=== PATIENT | female | born 1965 | race Caucasian/White ===

== ENCOUNTER 2019-01-16 10:29 | Outpatient (CLI) | payer BC ==
[2019-01-16] MEDS ORDERED: Sodium Chloride 0.9% 15 ML NEB ONE (11:11)
--- NOTE | 2019-01-16 17:45 | PRG ---
DATE OF SERVICE: 01/16/2019 HISTORY: Ms. Brett Vargas is a very pleasant 53-year-old last seen in the [facility] on 09/07/2016 for a wound of the right foot subsequent to right great toe ray amputation on 12/09/[address] Marcio Dupree. Subsequently, the patient underwent MRI on 10/03/2016, which revealed changes very suspicious for osteomyelitis of the first metatarsal shaft. On 11/08/2016, the patient underwent amputation of the fourth and fifth toes of the right foot. Today, the patient presents to the [facility] for evaluation of an ulceration of the plantar surface of her right transmetatarsal amputation stump. The patient states that since her last visit to the [facility], she was seen at the [facility] with healing of the wound now present with total contact casting. The patient states that she was last seen at the [facility] approximately 2 months ago. The patient states that after being seen in her primary care physician's office, she was referred to the [facility] for the ulceration of the plantar surface of her right transmetatarsal amputation stump. PHYSICAL EXAMINATION: VITAL SIGNS: Temperature 98.3, pulse 104, blood pressure 166/77. Accu-Chek 132. EXTREMITIES: The wound of the plantar surface of the right transmetatarsal amputation stump over the forefoot measures approximately 4.4 x 3.5 cm. Granulation tissue is visible within the wound margins. No purulent drainage is associated with the wound. Fascia or tendon is visible within the margins of the wound on exam today. ASSESSMENT AND PLAN: 1. Ulceration of plantar surface of right transmetatarsal amputation stump over the forefoot. As stated above, the patient reports that the wound with which she now presents healed completely with total contact casting before recurring. I have explained to the patient that total contact casting will not be available if she chooses to continue treatment at the [facility]. The patient states that she would like to have this modality available to her, so she will follow up at the [facility]. 2. Diabetes mellitus. The patient's Accu-Chek in clinic today is 132. The patient has been told that for optimal wound healing, her blood glucoses should remain below 150. Job ID: [id number]
== END 2019-01-16 10:30 | disposition home or self-care (01) ==
LOC: WCC 10:29
PROVIDERS: ATTEND Family Medicine
DX: T87.89 Other complications of amputation stump (principal); E11.9 Type 2 diabetes mellitus without complications; Z89.411 Acquired absence of right great toe
CPT/HCPCS: 97602; 99203; A4218; G0463

== ENCOUNTER 2022-07-25 13:21 | Outpatient (CLI) | payer BC | END 2022-07-25 13:22 | disposition home or self-care (01) | LOC: BICRAD 13:21 | PROVIDERS: ATTEND Nurse Practitioner Family | DX: E11.8 Type 2 diabetes mellitus with unspecified complications (principal); M61.572 Other ossification of muscle, left ankle and foot; R60.0 Localized edema; S91.002D Unspecified open wound, left ankle, subsequent encounter; T14.8XXD Other injury of unspecified body region, subsequent encounter ==

== ENCOUNTER 2022-10-10 13:13 | Outpatient (CLI) | payer BC ==
[~2022-10-10 13:13] MED LIST: Magnevist 469MG/ML 20 ML VIAL ONE
== END 2022-10-10 13:14 | disposition home or self-care (01) ==
LOC: MRI 13:13
PROVIDERS: ATTEND Nurse Practitioner Family
DX: I87.332 Chronic venous hypertension (idiopathic) with ulcer and inflammation of left lower extremity (principal); L97.323 Non-pressure chronic ulcer of left ankle with necrosis of muscle; R93.7 Abnormal findings on diagnostic imaging of other parts of musculoskeletal system
CPT/HCPCS: A9579

== ENCOUNTER 2023-01-22 12:05 | Outpatient (CLI) | payer BC | END 2023-01-22 12:06 | disposition home or self-care (01) | LOC: RAD 12:05 | PROVIDERS: ATTEND Nurse Practitioner Family | DX: E11.621 Type 2 diabetes mellitus with foot ulcer (principal); L97.419 Non-pressure chronic ulcer of right heel and midfoot with unspecified severity ==

== ENCOUNTER 2023-03-01 20:58 | Emergency (ER) | payer BC ==
[2023-03-01 21:43] LABS: #Basophils 0.1 thou/uL (0.0-0.2); #Eosinphils 0.3 thou/uL (0.0-0.7); #Monocytes 0.7 thou/uL (0.11-0.59); #Neutrophils 6.6 thou/uL (1.40-6.50); %Basophils 0.5 % (0.0-1.0); %Eosinophils 2.7 % (0.0-10.0); %Lymphocytes 33.9 % (21.0-51.0); %Monocytes 6.2 % (0.0-10.0); %Neutrophils 56.4 % (42.0-75.0); Hemoglobin 14.6 g/dL (12.0-16.0); Mean Corpuscular Volume 87.9 fl (78.0-98.0); Mean Platelet Volume 9.6 fL (7.4-10.4); Platelet Count 296 10x3/uL (130-400); RBC Distribution Width 12.5 % (11.5-14.5); Red Blood Cell (RBC) Count 5.03 mill/uL (4.20-5.40); White Blood Cell (WBC) Count 11.6 10x3/uL (4.8-10.8)
[2023-03-01 22:12] LABS: ALT (SGPT) 11 U/L (8-55); AST (SGOT) 14 U/L (5-34); Albumin 4.6 g/dL (3.5-5.0); Alkaline Phosphatase 74 U/L (40-110); Anion Gap 10 mmol/L (10-20); BUN (Urea Nitrogen) 18 mg/dL (9.8-20.1); Bilirubin, Total 0.4 mg/dL (0.2-1.2); Calc. Creatinine Clearance 0 mL/min (70-130); Calcium 9.7 mg/dL (7.8-10.44); Carbon Dioxide 27 mmol/L (22-29); Chloride 103 mmol/L (98-107); Estimated GFR 52; Globulin 3.5 g/dL (2.4-3.5); Glucose 158 mg/dL (70-105); Protein, Total 8.1 g/dL (6.0-8.3); Sodium 136 mmol/L (136-145)
== END 2023-03-01 23:06 | disposition home or self-care (01) ==
LOC: ERS 20:58
DX: E86.0 Dehydration (principal); E78.5 Hyperlipidemia, unspecified; I10 Essential (primary) hypertension; E11.9 Type 2 diabetes mellitus without complications; E03.9 Hypothyroidism, unspecified
CPT/HCPCS: 36415; 71045; 80053; 84484; 85025; 93005

== ENCOUNTER 2024-07-10 12:36 | Outpatient (CLI) | payer BC | END 2024-07-10 12:37 | disposition home or self-care (01) | LOC: SCSMRI 12:36 | PROVIDERS: ATTEND Psychiatry & Neurology Neurology | DX: R53.1 Weakness (principal); M50.322 Other cervical disc degeneration at C5-C6 level; M50.323 Other cervical disc degeneration at C6-C7 level; M48.02 Spinal stenosis, cervical region; M89.9 Disorder of bone, unspecified | CPT/HCPCS: 72141 ==

== ENCOUNTER 2024-08-11 12:19 | Outpatient (CLI) | payer BC | END 2024-08-11 12:20 | disposition home or self-care (01) | LOC: SCSMRI 12:19 | PROVIDERS: ATTEND Psychiatry & Neurology Neurology | DX: C80.1 Malignant (primary) neoplasm, unspecified (principal); R53.1 Weakness; G62.9 Polyneuropathy, unspecified; Z68.24 Body mass index [BMI] 24.0-24.9, adult; M53.82 Other specified dorsopathies, cervical region | CPT/HCPCS: 72142 ==

== ENCOUNTER 2024-09-26 08:27 | Outpatient (CLI) | payer BC | END 2024-09-26 08:28 | disposition home or self-care (01) | LOC: NM 08:27 | PROVIDERS: ATTEND Psychiatry & Neurology Neurology | DX: D18.00 Hemangioma unspecified site (principal) | CPT/HCPCS: 78306; A9503 ==